=== PATIENT | male | born 1965 | race African-American/Black ===

== ENCOUNTER → 2022-02-12 | Outpatient (CLI) | payer OTHER ==
[2022-02-12 10:56] LABS: BASO # 0.1 x10^3/uL (0.0-0.2); BASO % 1 % (0-3); EOS # 1.9 x10^3/uL (0.0-0.7); EOS % 30 % (0-3); HEMATOCRIT 47.5 % (39.0-53.0); HEMOGLOBIN 15.9 g/dL (13.0-17.5); LYMPH # 1.5 x10^3/uL (1.0-4.8); LYMPH % 25 % (24-48); MEAN CORPUSCULAR HEMOGLOBIN 26 pg (25-35); MEAN CORPUSCULAR HGB CONC 34 g/dL (31-37); MEAN CORPUSCULAR VOLUME 78 fL (79-100); MONO # 0.4 x10^3/uL (0.0-1.1); MONO % 6 % (0-9); NEUT # 2.2 x10^3/uL (1.8-7.7); NEUT % 37 % (31-73); PLATELET COUNT 137 x10^3/uL (140-400); RED BLOOD COUNT 6.09 x10^6/uL (4.30-5.70); RED CELL DISTRIBUTION WIDTH 16.2 % (11.5-14.5); WHITE BLOOD COUNT 6.1 x10^3/uL (4.0-11.0)
[2022-02-12 12:55] LABS: % BASOS 1 % (0-3); % EOS 32 % (0-5); % LYMPHS 27 % (24-48); % MONOS 5 % (0-10); % SEGS 35 % (35-66)
[2022-02-12 12:56] LABS: PLT ESTIMATE DECREASED (ADEQUATE)
== END ==
LOC: ONCLAB 09:29
PROVIDERS: ATTEND Internal Medicine Hematology & Oncology
DX: D72.19 Other eosinophilia (principal)
CPT/HCPCS: 36415; 82607; 82746; 85007; 85025